=== PATIENT | male | born 1965 | race African-American/Black ===

== ENCOUNTER 2019-03-19 22:35 | Emergency (ER) | payer SELFPAY ==
[~2019-03-19] VITALS: Ht 180.3 cm; Wt 102.1 kg
[2019-03-19 22:45] VITALS: BP 127/82
[2019-03-19] MEDS ORDERED: ACETAMINOPHEN 325 MG TAB PO ONE (23:45)
[2019-03-20 00:05] LABS: Basophils # (auto) 0 uL; Basophils % (auto) 0.5 % (0.0-2.0); Eosinophils # (auto) 0 uL; Eosinophils % (auto) 0.1 % (0.0-7.0); Hematocrit 42.1 % (41.0-53.0); Hemoglobin 14.2 g/dL (13.5-17.5); Lymphocytes # (auto) 0.5 uL; Lymphocytes % (auto) 5.4 % (10.0-50.0); Mean Corpuscular Hemoglobin 29.5 pg (28.0-32.0); Mean Corpuscular Hgb Conc. 33.7 g/dL (32.0-36.0); Mean Corpuscular Volume 87.6 fL (80.0-100.0); Monocytes % (auto) 11.9 % (0.0-12.0); Neutrophils % (auto) 82.1 % (37.0-80.0); Platelet Count (auto) 203 10^3/uL (140-450); Red Blood Cells 4.81 10^6/uL (4.5-5.90); White Blood Cell 8.5 10^3/uL (4.4-10.8)
[2019-03-20 00:24] LABS: Albumin 3.9 g/dL (3.4-5.0); Anion Gap 5 (5-15); Blood Urea Nitrogen 18 mg/dL (7-18); Calcium 8.4 mg/dL (8.5-10.1); Carbon Dioxide 26 mmol/L (21-32); Chloride 108 mmol/L (98-107); Glucose 103 mg/dL (74-106); Potassium 3.1 mmol/L (3.5-5.1); Sodium 139 mmol/L (136-145)
[2019-03-20 00:31] LABS: Alanine Aminotransferase 36 U/L (16-61); Alkaline Phosphatase 45 U/L (45-117); Aspartate Aminotransferase 18 U/L (15-37); BUN/Creatinine Ratio 14.5; Bilirubin, Total 0.5 mg/dL (0.2-1.0); GFR African American 78 mL/min; GFR Non-African American 65 mL/min; Total Protein 7.5 g/dL (6.4-8.2)
[2019-03-20] MEDS ORDERED: DexAMETHasone SOD PHOS 10MG/1ML VIAL INJ IM ONE (01:30)
[2019-03-20] MEDS ORDERED: ACETAMINOPHEN/CODEINE#3 (300/30mg) TAB PO ONE (01:30)
[2019-03-20] MEDS ORDERED: POTASSIUM CHL 20 Meq TABLET PO ONE (02:00)
== END 2019-03-20 02:14 | disposition home or self-care (01) ==
LOC: ER 22:35
DX: J06.9 Acute upper respiratory infection, unspecified (principal); E87.6 Hypokalemia; M79.10 Myalgia, unspecified site
CPT/HCPCS: 36415; 80053; 84484; 85025; 96372; 99284; J1100